=== PATIENT | female | born 1970 | race Caucasian/White ===

== ENCOUNTER → 2025-04-02 | Emergency (ER) | payer OTHER ==
[~2025-04-02] VITALS: Ht 160 cm; Wt 81.0 kg
[~2025-04-02] MED LIST: HYDR-3965 PO
[2025-04-02 17:52] VITALS: BP 158/94; PULSE 77; O2SAT 98
--- NOTE | 2025-04-02 18:16 | RADIOLOGY REPORT ---
EXAM: DI CHEST,TWO VIEWS CLINICAL HISTORY: LEFT SIDED RIB PAIN S/P FALL. COMPARISON: None TECHNIQUE: Frontal and lateral view of the chest was obtained FINDINGS: Lines and Tubes: None Lungs: No focal consolidation. Pleura: No effusion. No pneumothorax. Cardiomediastinal contours: Unremarkable Bones: No acute osseous abnormality. IMPRESSION: No acute cardiopulmonary disease.
--- NOTE | 2025-04-02 18:28 | Physician Documentation ---
History of Present Illness ~ Chief Complaint: Rib pain Stated Complaint: FALL SOB Time Seen by MD: 18:03 HPI 54-year-old female presents to the ED after falling yesterday over her dog. States that she struck her left side and now she complains of left rib pain especially with inspiration.. States she has been taking ibuprofen 100 mg twice daily. Last dose was three this afternoon. Since she does have primary care can follow up in the outpatient setting Allergies: Coded Allergies: No Known Allergies (Unverified , 04/02/25) Active Prescriptions See Medication Reconciliation Form. Medication Reconciliation Scheduled PRN Hydrocodone Bit/Acetaminophen 5/325 MG ([place] 5/325 MG), 1 TAB PO Q6H PRN for pain Review of Systems All Other Systems at this time: Reviewed and Negative ROS As stated above in the HPI, otherwise all systems are reviewed and negative. Physical Exam Vital Signs: Temperature: 97.9, Source: Temporal, Heart Rate: 77, Respiratory Rate: 18, BP: 158/94, Pulse Oximetry: 98, Weight: 81.000 Oxygen Flow Rate: 0 Physical Exam General: Alert, no apparent distress. Respiratory: Lungs clear, no respiratory distress. Chest: No accessory muscle use. tender to the left upper intercostals via palpation Cardiovascular: Regular rate and rhythm, no murmurs. Neurologic: Oriented x4. Psychiatric: Normal mood and affect. Skin: Normal color, warm and dry. No edema, no ecchymosis. Progress Results/Orders Results/Orders Completed Orders - DESEAN VERDUGO NP Hydrocodone/Apap 10/325 ([place] 10/325mg (04/02/25 18:25) Medications Received in ER Medications (Trade) Dose Ordered Sig/Silvano Route PRN Reason Start Time Stop Time Status Last Admin Dose Admin ([place] 10/325mg tab) 1 tab ONCE ONCE PO 04/02/25 18:25 04/02/25 18:26 DC 04/02/25 19:02 1 TAB Vital Signs 04/02/25 04/02/25 17:52 19:02 Temp 97.9 Pulse 77 Resp 18 19 B/P (MAP) 158/94 Pulse Ox 98 O2 Flow Rate 0 Medical Decision Making Findings 54-year-old female presents with post fall symptoms. This is a suspect rib contusion. No evidence of fracture in her x-ray.. She can follow up in the outpatient setting for further evaluation. In the meantime I am recommending a pain medication over the next coming days to help with the pain and inflammation Differential Dx:Considerations: Include: Chest wall contusion, Flail chest, Myocardial contusion, Pneumothorax, Pulmonary contusion, Rib fracture, Renal contusion, Splenic fracture, Tension pneumothorax, Other Departure Disposition: HOME / SELF CARE / HOMELESS Impression: Primary Impression: Rib pain Additional Impression: Fall Condition: Stable Discharge Instructions: Rib Contusion Referrals: NO PRIMARY CARE PROVIDER (PCP) Prescriptions Hydrocodone Bit/Acetaminophen 5/325 MG ([place] 5/325 MG) 5 Mg/325 Mg Tablet 1 TAB PO Q6H PRN for pain, #14 TAB Prov: DESEAN VERDUGO CHIEF OF INTERNAL MEDICINE 04/02/25 Education Educated: Patient Educated regarding: diagnosis Signature Scribe Signature: f Attestation: Scribed for Desean Verdugo Cuff Presser by Desean Schultz NP . 04/02/25 18:42 DESEAN VERDUGO NP Apr 02, 2025 18:28
[2025-04-02 19:02] VITALS: RESP 19
[2025-04-02] MEDS: HYDROcodone/acetaminophen 10/325mg tab PO ONE (19:02)
[2025-04-02 19:45] VITALS: TEMP 97.9
== END | disposition home or self-care (01) ==
LOC: ER 17:48
DX: R07.81 Pleurodynia (principal); W18.39XA Other fall on same level, initial encounter; Y93.89 Activity, other specified; Y92.89 Other specified places as the place of occurrence of the external cause; Y99.8 Other external cause status
CPT/HCPCS: 71046; 99283